=== PATIENT | female | born 1985 | race Caucasian/White ===

== ENCOUNTER 2019-08-07 18:10 | Inpatient (IN) ==
[2019-08-07] MEDS ORDERED: Famotidine 20 MG/2 ML VIAL IVP PRN (19:27)
[2019-08-07] MEDS ORDERED: Naloxone 0.4 MG/ML INJ IVP PRN ×2 (19:27→20:36)
[2019-08-07] MEDS ORDERED: Metoclopramide 10 MG/2 ML VIAL IVP PRN (19:27)
[2019-08-07] MEDS ORDERED: Lidocaine 1% 20 ML MDV INFILT PRN (19:27)
[2019-08-07] MEDS ORDERED: Ondansetron 4 MG/2 ML VIAL IVP PRN ×2 (19:27→20:36)
[2019-08-07] MEDS ORDERED: Ringers Solution, Lactated 1,000 ML ONE (19:29)
[2019-08-07] MEDS: Ringers Solution, Lactated 1,000 ML IVC SCH ×2 (19:30→21:20)
[2019-08-07 19:47] LABS: Basophils % 0.2 %; Eosinophils # 0.1 K/mcL (0.0-0.6); Eosinophils % 0.5 %; Hematocrit 38.3 % (35.3-44.9); Hemoglobin 12.6 g/dL (11.5-15.4); Immature Granulocytes % 0.9 % (0-4); Lymphocytes # 3.1 K/mcL (0.6-4.6); Lymphocytes % 30.2 %; Mean Corpuscular HGB Conc 32.9 g/dL (31.6-35.5); Mean Corpuscular Hemoglobin 28.6 pg (28.0-33.3); Mean Platelet Volume 10.9 fL (9.4-12.4); Monocytes # 0.5 K/mcL (0.0-1.3); Monocytes % 5.1 %; Neutrophils # 6.5 K/mcL (1.6-8.9); Platelet Count 182 K/mcL (140-400); Red Cell Distribution Width 14.7 % (11.5-14.5); Segmented Neutrophils % 63.1 %; White Blood Count 10.4 K/mcL (4.3-11.1)
[2019-08-07 20:11] LABS: Amphetamine Screen,Urine Negative ng/mL (Cutoff=1000); Barbiturate Screen,Urine Negative ng/mL (Cutoff=200); Benzodiazepines Screen,Urine Negative ng/mL (Cutoff=200); Cannabinoid Screen,Urine Negative ng/mL (Cutoff = 50); Cocaine Screen,Urine Negative ng/mL (Cutoff= 300); Opiate Screen,Urine Negative ng/mL (Cutoff=300); Phencyclidine Screen,Urine Negative ng/mL (Cutoff=25)
[2019-08-07] MEDS ORDERED: Ropivacaine/PF 0.2% 20 ML VIAL EP ONE (20:36)
[2019-08-07] MEDS ORDERED: EPHEDrine 50 MG/ML VIAL IVP PRN (20:36)
[2019-08-07] MEDS ORDERED: *HR* FentaNYL (PF) 100 MCG/2 ML VIAL EP ONE (20:36)
[2019-08-07] MEDS ORDERED: Epidural Premix (fent/bupiv) 110 ML EP SCH (20:45)
[2019-08-07] MEDS ORDERED: Ropivacaine/PF 0.2% 20 ML VIAL ONE (20:46)
[2019-08-07] MEDS ORDERED: *HR* Phenylephrine 10 MG/ML VIAL ONE (20:46)
[2019-08-07] MEDS ORDERED: Oxytocin 20 units/ LR 1000 mL 20 UNIT/1,000 ML BAG IVC ONE (22:10)
[2019-08-08] MEDS ORDERED: Oxytocin 20 units/ LR 1000 mL 20 UNIT/1,000 ML BAG IVC SCH ×2 (00:15→05:15)
[2019-08-08] MEDS: Ringers Solution, Lactated 1,000 ML IVC SCH (00:23)
[2019-08-08] MEDS ORDERED: Ringers Solution, Lactated 500 ML IVC SCH (00:30)
[2019-08-08] MEDS ORDERED: Rho Immune Globulin 1,500 UNIT SYRINGE IM PRN (05:15)
[2019-08-08] MEDS ORDERED: Measles/Mumps/Rubella Vacc 0.5 ML VIAL SQ PRN (05:15)
[2019-08-08] MEDS ORDERED: Acetaminophen 325 MG TABLET PO SCH (06:00)
[2019-08-08] MEDS: Prenatal Vit/FA 1 EACH TABLET PO SCH (07:49)
[2019-08-08] MEDS: Ibuprofen 600 MG TABLET PO SCH ×3 (07:49→21:40)
[2019-08-09 05:56] LABS: Basophils % 0.3 %; Eosinophils # 0.2 K/mcL (0.0-0.6); Eosinophils % 2.4 %; Hematocrit 34.5 % (35.3-44.9); Hemoglobin 11.2 g/dL (11.5-15.4); Immature Granulocytes % 0.8 % (0-4); Lymphocytes # 4.4 K/mcL (0.6-4.6); Lymphocytes % 50.9 %; Mean Corpuscular HGB Conc 32.5 g/dL (31.6-35.5); Mean Corpuscular Hemoglobin 28.2 pg (28.0-33.3); Mean Corpuscular Volume 86.9 fL (83.0-100.0); Monocytes # 0.5 K/mcL (0.0-1.3); Monocytes % 6.3 %; Neutrophils # 3.4 K/mcL (1.6-8.9); Platelet Count 152 K/mcL (140-400); Red Blood Count 3.97 M/mcL (3.82-4.97); Red Cell Distribution Width 14.6 % (11.5-14.5); Segmented Neutrophils % 39.3 %; White Blood Count 8.6 K/mcL (4.3-11.1)
[2019-08-09] MEDS: Ibuprofen 600 MG TABLET PO SCH (07:35)
[2019-08-09] MEDS: Prenatal Vit/FA 1 EACH TABLET PO SCH (07:35)
[2019-08-09 07:40] VITALS: BP 109/70
== END 2019-08-09 12:30 | disposition home or self-care (01) | DRG 807 ==
LOC: 1NENULAB → 1NENUOBS 08-08 05:14
PROVIDERS: ADMIT Obstetrics & Gynecology; ATTEND Obstetrics & Gynecology